=== PATIENT | female | born 1950 | race Caucasian/White ===

== ENCOUNTER 2018-07-29 07:13 | Outpatient (CLI) | payer OTHER | END 2018-07-29 07:16 | disposition home or self-care (01) | LOC: SONOGRAMA 07:13 | DX: E04.1 Nontoxic single thyroid nodule (principal) ==

== ENCOUNTER 2018-08-30 05:55 | Emergency (ER) | payer OTHER ==
[~2018-08-30] VITALS: Ht 160 cm; Wt 97.5 kg
[2018-08-30] MEDS ORDERED: SYNTHROID150 MCG (06:13)
[2018-08-30] MEDS ORDERED: ASPIRIN EC81 MG (06:14)
[2018-08-30] MEDS ORDERED: PREVASTATIN (06:16)
[2018-08-30] MEDS ORDERED: BISOPROLOL-HCT1 EAC1 (06:17)
[2018-08-30] MEDS ORDERED: AVAPRO150 MG (06:17)
[2018-08-30] MEDS ORDERED: PNEU16DI2 (06:30)
== END 2018-08-30 14:58 | disposition home or self-care (01) ==
LOC: ER 05:55
DX: N76.4 Abscess of vulva (principal); B95.1 Streptococcus, group B, as the cause of diseases classified elsewhere; B96.89 Other specified bacterial agents as the cause of diseases classified elsewhere

== ENCOUNTER 2021-11-26 22:39 | Emergency (ER) | payer OTHER ==
[~2021-11-26] VITALS: Ht 160 cm; Wt 94.8 kg
[~2021-11-26 22:39] MED LIST: ASPIRIN EC81 MG; AVAPRO150 MG; BISOPROLOL-HCT1 EAC1; PNEU16DI2; PREVASTATIN; SYNTHROID150 MCG
[2021-11-26] MEDS ORDERED: DILTIAZEM HCL30 MG PO (22:45)
[2021-11-26] MEDS ORDERED: ELIQUIS5 MG PO (22:46)
== END 2021-11-27 00:08 | disposition home or self-care (01) ==
LOC: ER 22:39
DX: S42.91XA Fracture of right shoulder girdle, part unspecified, initial encounter for closed fracture (principal); W01.0XXA Fall on same level from slipping, tripping and stumbling without subsequent striking against object, initial encounter; Y93.9 Activity, unspecified; Y92.015 Private garage of single-family (private) house as the place of occurrence of the external cause; Y99.9 Unspecified external cause status